=== PATIENT | female | born 1995 | race Caucasian/White ===

== ENCOUNTER 2020-08-24 11:17 | Inpatient (IN) | payer OTHER ==
[2020-08-24 12:07] LABS: PROTEIN:CREATININE 0.35 RATIO; URINE CREATININE 114.18 mg/dL (29.00-226.00); URINE TOTAL PROTEIN-RANDOM 40.9 mg/dL (<11.9)
[2020-08-24 12:09] LABS: BILIRUBIN NEGATIVE (NEGATIVE); BLOOD 2+ Ery/uL (NEGATIVE); CLARITY CLEAR (CLEAR); COLOR YELLOW (YELLOW); GLUCOSE (U) NORMAL (NORMAL); LEUKOCYTES 1+ Leu/uL (NEGATIVE); NITRITE NEGATIVE (NEGATIVE); PROTEIN TRACE (LOW) mg/dL (NEGATIVE); SPECIFIC GRAVITY 1.015 (1.001-1.030); UROBILINOGEN 0.2 mg/dL (0.2-1.0)
[2020-08-24 12:09] LABS: HCT 38.6 % (37.0-47.0); HGB 13.4 g/dl (12.5-16.0); MCH 32.1 pg (25.0-31.0); MCHC 34.7 g/dL (32.0-36.0); MCV 92.3 fL (78.0-100.0); MPV 10.2 fL (6.0-9.5); RBC 4.18 M/uL (4.20-5.40); RDW 14.1 % (11.5-14.0); WBC 10.9 K/uL (4.0-10.5)
[2020-08-24 12:22] LABS: ALBUMIN 2.6 g/dL (3.4-5.0); BILIRUBIN - TOTAL 0.6 mg/dL (0.2-1.0); BUN/CREAT RATIO (CALC) 14.8 RATIO; CREATININE 0.54 mg/dL (0.51-0.95); GLOBULIN (CALCULATION) 4.1 g/dL; POTASSIUM 3.9 mmol/L (3.5-5.1); TOTAL PROTEIN 6.7 g/dL (6.4-8.2); URIC ACID 6.6 mg/dL (2.6-6.2)
[2020-08-24 12:48] LABS: BACTERIA 1+
[2020-08-24 18:11] LABS: BILIRUBIN NEGATIVE (NEGATIVE); BLOOD NEGATIVE Ery/uL (NEGATIVE); CLARITY CLEAR (CLEAR); COLOR YELLOW (YELLOW); GLUCOSE (U) NORMAL (NORMAL); LEUKOCYTES NEGATIVE Leu/uL (NEGATIVE); NITRITE NEGATIVE (NEGATIVE); PROTEIN NEGATIVE (NEGATIVE); SPECIFIC GRAVITY 1.025 (1.001-1.030); UROBILINOGEN 0.2 mg/dL (0.2-1.0); pH 6.5 (5.0-9.0)
[2020-08-25 06:06] LABS: HCT 32.3 % (37.0-47.0); HGB 11.3 g/dl (12.5-16.0); MCH 32.9 pg (25.0-31.0); MCV 94.2 fL (78.0-100.0); MPV 10.3 fL (6.0-9.5); RBC 3.43 M/uL (4.20-5.40); RDW 14.2 % (11.5-14.0); WBC 18.6 K/uL (4.0-10.5)
== END 2020-08-26 17:10 | disposition home or self-care (01) | DRG 787 ==
LOC: FOB 11:17
PROVIDERS: ADMIT Obstetrics & Gynecology
PROC: 10D00Z1 Extraction of Products of Conception, Low, Open Approach (ICD-10-PCS; principal; 2020-08-24 16:51)
DX: O11.4 Pre-existing hypertension with pre-eclampsia, complicating childbirth (principal); O41.03X0 Oligohydramnios, third trimester, not applicable or unspecified; O10.92 Unspecified pre-existing hypertension complicating childbirth; Z3A.36 36 weeks gestation of pregnancy; Z37.0 Single live birth; O32.1XX0 Maternal care for breech presentation, not applicable or unspecified; O99.214 Obesity complicating childbirth; E66.9 Obesity, unspecified; O99.62 Diseases of the digestive system complicating childbirth; K59.00 Constipation, unspecified
CPT/HCPCS: 36415; 80053; 81001; 81003; 82570; 83615; 84112; 84156; 84550; 86850; 86900; 86901; J0456; J0610; J0690; J0702; J1650; J1885; J2274; J2405; J3010; J3475; J7050; J7120; U0002